=== PATIENT | male | born 1935 | race Caucasian/White ===

== ENCOUNTER → 2017-07-26 | Day surgery (SDC) | payer MEDICARE, OTHER ==
[~2017-07-26] MED LIST: ASPI325T PO; ASPI81TA23 PO; BYET10IN2 SQ; CALC625 PO; CARV80 PO; DULA0.5I SQ; EZET10 PO; FISH1000 PO; GLIM4TAB PO; HYDR25TA5 PO; HYZA100T6 PO; INSU1INJ13 SQ; IPRAAER INH; LANTUS2P SQ; LEVO.075 PO; LIDOCAINE HCL 1% 30 ML VIAL NERV BLOCK ONE; LORT5TAB PO; METATAB PO; MOBI7.5T PO; MONT10TA4 PO; NIAC500C PO; NITR1SUB3 SL; OCUVTAB PO; PLAV75TA29 PO; PROPOFOL 200 MG/20 ML AMP IV ONE; PROT40TA PO; ROSU10 PO; SODIUM CHLORIDE 0.9% 10 ML VIAL ONE; methylPREDNISolone ACETATE 80 MG/ML VIAL ONE
--- NOTE | 2017-07-26 10:37 | M6 ---
cc: NILTON CARL M.D. DATE 07/26/2017 DATE OF 1935 PROCEDURE Fluoroscopically guided L4-5 interlaminar epidural steroid injection. History and physical was completed and signed. Consent was signed. Procedure site was marked. Medications were listed and reconciled. Pain score was recorded. Allergies were noted. Time out was taken. Fluoroscopy time was recorded where applicable. Sedation was administered or directed by Dr. Carl. The patient was given oxygen. The patient was monitored by a registered nurse. Total procedure time was greater than 15 minutes. PROCEDURE NOTE IV was started. Blood pressure cuff, pulse oximeter and EKG were applied. The patient was placed in the prone position on a Louis table, sedated with small amounts of propofol titrated to effect. Vital signs were monitored and remained stable throughout the procedure. The lumbar area was prepped with alcohol and 10% Betadine solution and draped with sterile drapes. Fluoroscopy was used to visualize the L4-5 interlaminar space. The skin was infiltrated with 1% Xylocaine using a 27-gauge needle. Then a 3-1/2-inch, 18-gauge Camacho needle was advanced using fluoroscopic guidance and the [id number]-lj-omfrxiijio technique into the epidural space at L4-5 slightly to the right of the midline. There was negative aspiration for blood or any other type of fluid and the patient was given 10 mL of 0.5% Xylocaine, 80 mg of Depo-Medrol. Following this the patient was taken to the recovery room with stable vital signs, neurologically intact. WMD CHITRA Orozco/ALCIDES /10:02 AM /10:14 AM
== END | disposition home or self-care (01) ==
LOC: PHSDC 08:14
PROVIDERS: ATTEND Pain Medicine Interventional Pain Medicine
DX: M54.5 Low back pain (principal)
CPT/HCPCS: 62323; 99152; J1040